=== PATIENT | male | born 1980 ===

== ENCOUNTER 2017-03-15 10:23 | Emergency (ER) | payer BC ==
--- NOTE | 2017-03-15 11:29 | C.PDOC ---
History Of Present Illness 37 yo male come in for evaluation of intermittent pain and swelling over Right index finger overlying PIPJ for past few months, intermittent pain over lateral aspect Right elbow. As per pt, work as super at building, unable to recall direct injury perhaps to Right index or elbow. Pt sts, pain worse over Right index finger for past few days, (+) swelling, worse with movement. Otherwise, denies fever, chills,deformity, weakness, sensory or vascular deficient to Right arm. Time Seen by Provider: 03/15/17 10:55 Chief Complaint (Nursing): Finger,Hand,&Wrist History Per: Patient Onset/Duration Of Symptoms: Intermittent Episodes Past Medical History Reviewed: Historical Data, Nursing Documentation, Vital Signs - Medical History PMH: No Chronic Diseases Family History: States: No Known Family Hx - Social History Hx Alcohol Use: No Hx Substance Use: No - Immunization History Hx Tetanus Toxoid Vaccination: No Hx Influenza Vaccination: No Hx Pneumococcal Vaccination: No Review Of Systems Except As Marked, All Systems Reviewed And Found Negative. Constitutional: Negative for: Fever, Chills Musculoskeletal: Positive for: Hand Pain, Other (Right elbow) Skin: Negative for: Lesions Neurological: Negative for: Weakness, Numbness Physical Exam - Physical Exam Appears: Well, Non-toxic, No Acute Distress Skin: Normal Color, Warm, No Ecchymosis Extremity: Normal ROM (RUE with mild discomfort noted over Right 2nd PIPJ to flexion due to pain. No neurovascular deficits.), Tenderness (mild over lateral aspect Right elbow, no edema, no erythema. Tenderness over Right 2nd PIPJ with mod edema, no erythema, no flactulance. ), Capillary Refill (less than 2sec Right hand), No Deformity Neurological/Psych: Oriented x3, Normal Speech, Normal Motor, Normal Sensation, Normal Reflexes ED Course And Treatment - Other Rad Right index finger X-Ray: Interpreted by Me, Viewed By Me Interpretation: (+) avulsion fx noted over 2nd PIPJ, old Right elbow X-Ray: Interpreted by Me, Viewed By Me Interpretation: no acute fx or dislocation Progress Note: On re-eval, pt is afebrile, hemodynamicaly stable. non-toxic. RUE: exam c/w Right elbow tendonitis, Right 2nd PIPJ arthralgia likely sec to old fx. FAROM, no neurovascular deficits, no skin changes. Aluminium finger splint applied to Right index. Jared warp applied to Right elbow. Pt advised and ref. to f/u with Ortho in 2-3 days for re-eavl. reutrn if any new changes. Disposition Counseled Patient/Family Regarding: Studies Performed, Diagnosis, Need For Followup, Rx Given - Disposition Referrals: Leonidas Holloway MD [Staff Provider] - [facility] [Outside] [facility] [Outside] Disposition: HOME/ ROUTINE Disposition Time: 11:41 Condition: STABLE Additional Instructions: RIGHT ELBOW JARED WRAP TAKE MEDICATION PRESCRIBED FOLLOW UP WITH HAND SPECIALIST AND ORTHOPEDIST AT [facility] IN 2-3 DAYS FOR RE-EVALUATION. RETURN TO ED IF ANY WORSENING OR NEW CHANGES. Prescriptions: Prednisone [Deltasone] 20 mg PO DAILY #3 tablet traMADol [Ultram] 50 mg PO TID #7 tab Instructions: Tendinitis (ED), Tennis Elbow (ED) Forms: [facility] ([place]) - Clinical Impression Clinical Impression: Finger joint effusion, Elbow tendinitis
[2017-03-15 11:47] VITALS: BP 105/60; TEMP 97.9
[2017-03-15 12:04] VITALS: PULSE 61; RESP 17; O2SAT 98
--- NOTE | 2017-03-15 12:11 | RAD ---
Right hand 2nd digit three views History: Pain. Comparison: None available. Findings: Soft tissue swelling at the level of the 2nd digit particularly at the radial aspect of the 2nd PIP joint space. At that level, there is cortical productive change and or cortical irregularity with small osseous fragmentation seen at the base of the 2nd middle phalanx and head of the 2nd proximal phalanx. On the lateral view, there is some productive change and or cortical irregularity at the volar base of the 2nd middle phalanx. These changes are of uncertain clinical etiology and may be the sequelae of acute infectious and or inflammatory changes versus posttraumatic versus degenerative change versus additional etiology. Clinical correlation. Correlation with MRI be helpful if clinically indicated. Remainder of the visualized joint spaces appear preserved. Remainder of the visualized osseous structures appear preserved. Impression: Soft tissue swelling at the level of the 2nd digit particularly at the radial aspect of the 2nd PIP joint space. At that level, there is cortical productive change and or cortical irregularity with small osseous fragmentation seen at the base of the 2nd middle phalanx and head of the 2nd proximal phalanx. On the lateral view, there is some productive change and or cortical irregularity at the volar base of the 2nd middle phalanx. These changes are of uncertain clinical etiology and may be the sequelae of acute infectious and or inflammatory changes versus posttraumatic versus degenerative change versus additional etiology. Clinical correlation. Correlation with MRI be helpful if clinically indicated.
--- NOTE | 2017-03-15 12:19 | RAD ---
Right elbow three views History: Pain. Comparison: None available. Findings: No evidence of acute displaced fracture or dislocation. No significant elbow joint effusion. Mild bony protuberance at the lateral femoral condyle, nonspecific. Impression: Negative acute. If pain persists, consider MRI.
== END 2017-03-15 12:04 | disposition home or self-care (01) ==
LOC: C.ER 10:23
DX: M25.441 Effusion, right hand (principal); M77.8 Other enthesopathies, not elsewhere classified